=== PATIENT | female | born 1985 | race Hispanic/Latino ===

== ENCOUNTER 2023-11-23 19:46 | Emergency (ER) | payer MEDICARE, OTHER, SELFPAY ==
[2023-11-23 19:52] VITALS: BP 122/85
[2023-11-23 21:00] VITALS: BP 118/82
[2023-11-23] MEDS: SENOKOT 17.1999999999999993 MG PO (21:01)
--- NOTE | 2023-11-23 21:41 | ED.GENMED ---
History of Present Illness
General
Chief Complaint: Abdominal Pain
Source: patient
Time Seen by Provider: 11/23/23 20:36
Travel History
Have you had any contact with someone who has COVID-19?: No
Do you have any symptoms of coronavirus? Fever > 100 degrees, chills, cough, shortness of breath, sore throat, loss of taste or smell, muscle aches, or headache?: No
History of Present Illness
History of Present Illness:
38-year-old female with past medical history of chronic constipation presenting to the emergency department for evaluation of an exacerbation of her constipation noting that she has not had a bowel movement in about 2 weeks which is worse than her
usual. She was at [facility] yesterday where she had CT imaging performed which showed constipation but no other surgical abnormalities or obstruction. She has been using MiraLAX, magnesium citrate, home enemas and received a enema at the
ER yesterday with very minimal relief. She did contact her primary care provider as well as her GI provider today and GI ultimately wished to perform a bowel prep and continued MiraLAX however the patient was concerned with doing the bowel prep
with all of the medications she had already taken so did not do this. She denies any vomiting, fevers, chills or any other concerns presently.
Past History
Past History
ED Past Medical History: Arrthythmia (Tachycarida), Psychiatric (Anxiety ), Other (Migraines, strep throat, Lupus Transverse Mylitis) and Other (seasonal allergies with sinus congestion.); Negative GERD or IDDM
ED Past Surgical History: Gynecological (Tubal ligation)
Social History
Tobacco: Non-smoker
Alcohol: None
Drug: None
Personal:
Living: with family
Employment: Employed
Family History
Family History: Other (Noncontributory)
Review of Systems
Review of Systems
All Other Systems: ROS reviewed and negative except as documented in HPI and ROS
Phy Exam
Physical Exam
Physical Exam:
GENERAL: Alert , in no apparent distress but does appear uncomfortable
EYE: clear conjunctiva b/l
HEAD: NCAT
ENT: mmm.
ABDOMEN: Soft, without focal tenderness, no r/g, no cvat
Rectal exam: Chaperoned by ED EDUARDO Lennon: There is no stool within the rectal vault or fecal impaction
NEUROLOGICAL: Alert and oriented
SKIN: Warm and dry, skin intact.
MUSCULOSKELETAL: well perfused.
PSYCH: Normal and appropriate interaction.
Scores
Heart Failure Risk
Heart Failure Risk Score: Not Applicable
Heart Score for Chest Pain Patients
STEMI patient?: Not applicable
Withdrawal Assessment of Alcohol
Withdrawal Assessment Completed?: Not applicable
Course
Orders/Labs/Results
Orders:
Orders
11/23/23 20:45
Enema- Treatment ONCE
Type: Milk of Molasses
Sennosides [Senokot] 17.2 mg PO NOW STA
11/23/23 23:13
Lactulose [Duphalac/Chronulac] 20 grams PO NOW STA
11/23/23 23:30
Acetaminophen [Tylenol] 650 mg .ROUTE .STK-MED ONE
11/24/23 00:01
Acetaminophen [Tylenol] 650 mg PO NOW STA
Vital Signs
Initial and Last Documented VS:
Initial Vital Signs
Temp Pulse Resp BP Pulse Ox
98.1 F 111 16 122/85 99
11/23/23 19:52 11/23/23 19:52 11/23/23 19:52 11/23/23 19:52 11/23/23 19:52
Last Documented Vital Signs
Temp Pulse Resp BP Pulse Ox
98.1 F 89 18 124/88 99
11/23/23 19:52 11/24/23 00:15 11/24/23 00:15 11/24/23 00:15 11/24/23 00:15
MDM/Problems Addressed
Differential Diagnosis Includes:
Exacerbation of chronic constipation, I do not have concern for obstruction given normal CT done yesterday, I do not have concern for any acute surgical process
MDM/Problems Addressed:
38-year-old female with patient presenting to the emergency department with exacerbation of this constipation. She does not have any fecal impaction. She had imaging done yesterday at an outside institution which did not show any surgical
complications. At this time I do suspect her chronic constipation to be the most likely cause of her symptoms presently. Will trial Senokot and a milk of molasses enema. Reassessment following
*Pulse Oximetry
Patient hypoxic: no
*Critical Care Note
Total Time (30-74mins, 75-104mins- exclusive of procedures): Not Applicable
Data Reviewed
Review of Other/Old Records Reveals: Labs and Records
Source: patient and records
Comment
Comment:
11 PM: Patient with some relief following the milk of molasses enema. Still noting some discomfort. Will treat with additional lactulose. Tylenol also ordered for pain.
Patient Management
Escalation/DeEscalation of care consider admission/obs:
Patient resting comfortably and does not seem in any acute distress. She seems to be more frustrated than anything. She has had small bowel movements but nothing of substance. Will trial continued lactulose at home. She has already arranged
follow-up with her GI team this coming Sunday. Aware of return precautions and follow-up recommendations
ED Attending Note
-
Portions of this chart may have been created with voice recognition software.� Occasional wrong word or��sound alike� substitutions may have occurred due to the inherent limitations of voice recognition software.
Discharge Plan
Departure
Patient Disposition: Home (Routine Discharge)
Date of Disposition: 11/24/23
Time of Disposition: 00:36
Patient with high blood pressure during this ER visit?: No
Discharge Problem:
Constipation
Instructions: Constipation, Adult (DC)
Prescriptions:
New
lactulose 10 gram/15 mL (15 mL) solution
10 g PO BID PRN (Reason: Constipation) Qty: 120 0RF
No Action
amoxicillin-pot clavulanate 875 MG/125 MG tablet
1 tab PO Q12 Qty: 20 0RF
prednisone 20 MG tablet
40 mg PO DAILY Qty: 6 0RF
mometasone [Nasonex] 17 GM spray,non-aerosol
17 gm NS DAILY Qty: 1 1RF
Rx Instructions:
one spray each nostril daily
naproxen 500 MG tablet
500 mg PO BIDPRN PRN (Reason: pain) Qty: 30 0RF
Referrals:
Abdiaziz Sahu DO [Family Provider] -
Interventions
Interventions:
*Risk Screen - Suicide Last Done: 11/23/23 19:52
*General Assessment Last Done: 11/23/23 19:52
*Neglect/Abuse Screening Last Done: 11/23/23 19:52
*ED COVID-19 Vaccine History Last Done: 11/23/23 21:00
*Nursing Disposition Last Done: 11/24/23 00:59
[id number] Assessment Last Done: 11/23/23 21:00
Discharge Date and Time
Discharge Date/Time: 11/24/23 01:00
Print Language: UKRAINIAN
[2023-11-23] MEDS: DUPHALAC/CHRONULAC 20 GRAMS PO (23:23)
[2023-11-24] MEDS: TYLENOL 650 MG PO (00:02)
[2023-11-24 00:15] VITALS: BP 124/88
== END 2023-11-24 01:00 | disposition home or self-care (01) ==
LOC: EMR 19:46
PROVIDERS: EMERGENCY PHYSICIAN Emergency Medicine; FAMILY PHYSICIAN Internal Medicine
DX: K59.00 Constipation, unspecified (principal)
CPT/HCPCS: 99283

== ENCOUNTER 2024-05-24 18:16 | Emergency (ER) | payer MEDICARE, OTHER, SELFPAY ==
[2024-05-24 18:18] VITALS: BP 120/82
--- NOTE | 2024-05-24 19:08 | ED.GENMED ---
History of Present Illness
General
Chief Complaint: Anal/Rectal Problem
Source: patient
Exam Limitations: none
Time Seen by Provider: 05/24/24 19:07
History of Present Illness
History of Present Illness:
Patient with a history of significant constipation managed at home. Today while bearing down she all of a sudden rectal pain and rectal fullness. She thinks she may have prolapse. No bleeding. No abdominal pain.
Past History
Past History
ED Past Medical History: Arrthythmia (Tachycarida), Psychiatric (Anxiety ), Other (Migraines, strep throat, Lupus Transverse Mylitis) and Other (seasonal allergies with sinus congestion.); Negative GERD or IDDM
ED Past Surgical History: Gynecological (Tubal ligation)
Social History
Tobacco: Non-smoker
Alcohol: None
Drug: None
Personal:
Living: with family
Employment: Employed
Family History
Family History: Other (Noncontributory)
Review of Systems
Review of Systems
All Other Systems: Not applicable
Constitutional: Denies fever
ABD/GI: Denies abdominal pain or vomiting
Phy Exam
Physical Exam
Physical Exam:
GENERAL: Alert and oriented in no apparent distress
CARDIAC: Regular rate and rhythm
LUNGS: No respiratory distress
ABDOMEN: Soft, without focal tenderness or distention. Rectal exam with enlarged boggy hemorrhoids with some erythema. No bleeding. Process. No prolapse.
NEUROLOGICAL: Alert and oriented , grossly non-focal
SKIN: Warm and dry
PSYCH: Normal and appropriate interaction.
Course
Vital Signs
Initial and Last Documented VS:
Initial Vital Signs
Temp Pulse Resp BP Pulse Ox
98.1 F 81 16 120/82 99
05/24/24 18:18 05/24/24 18:18 05/24/24 18:18 05/24/24 18:18 05/24/24 18:18
Last Documented Vital Signs
Temp Pulse Resp BP Pulse Ox
98.1 F 81 16 120/82 99
05/24/24 18:18 05/24/24 18:18 05/24/24 18:18 05/24/24 18:18 05/24/24 18:18
MDM/Problems Addressed
Differential Diagnosis Includes:
All consistent with inflamed hemorrhoids. Nothing to support prolapsed rectum. Anusol HC. Continue constipation management follow-up
*Critical Care Note
Total Time (30-74mins, 75-104mins- exclusive of procedures): Not Applicable
ED Attending Note
-
Portions of this chart may have been created with voice recognition software.� Occasional wrong word or��sound alike� substitutions may have occurred due to the inherent limitations of voice recognition software.
Discharge Plan
Departure
Patient Disposition: Home (Routine Discharge)
Date of Disposition: 05/24/24
Time of Disposition: 19:29
Patient with high blood pressure during this ER visit?: Yes
Discharge Problem:
Inflamed external hemorrhoid, Chronic constipation
Instructions: Hemorrhoids (DC), BLOOD PRESSURE
Prescriptions:
New
hydrocortisone acetate [Anusol-HC] 25 mg suppository
25 mg [place] DAILY 14 Days Qty: 12 0RF
No Action
amoxicillin-pot clavulanate 875 MG/125 MG tablet
1 tab PO Q12 Qty: 20 0RF
prednisone 20 MG tablet
40 mg PO DAILY Qty: 6 0RF
mometasone [Nasonex] 17 GM spray,non-aerosol
17 gm NS DAILY Qty: 1 1RF
Rx Instructions:
one spray each nostril daily
naproxen 500 MG tablet
500 mg PO BIDPRN PRN (Reason: pain) Qty: 30 0RF
lactulose 10 gram/15 mL (15 mL) solution
10 g PO BID PRN (Reason: Constipation) Qty: 120 0RF
Referrals:
Cheo Stanley MD [Active] - Follow up in 5-7 days
Activity Restrictions/Additional Instructions:
I gave you a prescription for the rectal suppository. You may be able to buy the cream [id number].
I also gave you the name of the colorectal surgeon to call for follow-up
Interventions
Interventions:
*Risk Screen - Suicide Last Done: 05/24/24 18:18
*General Assessment Last Done: 05/24/24 18:18
*Neglect/Abuse Screening Last Done: 05/24/24 18:18
*ED COVID-19 Vaccine History Last Done: 05/24/24 18:18
Discharge Date and Time
Print Language: CROATIAN
[2024-05-24 19:41] VITALS: BP 117/80
== END 2024-05-24 19:50 | disposition home or self-care (01) ==
LOC: EMR 18:16
PROVIDERS: EMERGENCY PHYSICIAN Emergency Medicine; FAMILY PHYSICIAN Family Medicine
DX: K64.4 Residual hemorrhoidal skin tags (principal); K59.09 Other constipation; F41.9 Anxiety disorder, unspecified; M32.9 Systemic lupus erythematosus, unspecified; Z98.51 Tubal ligation status
CPT/HCPCS: 99282

== ENCOUNTER 2024-06-18 12:17 | Emergency (ER) | payer MEDICARE, OTHER, SELFPAY ==
[2024-06-18 12:26] VITALS: BP 126/83
[2024-06-18] MEDS: MOTRIN 400 MG PO (15:38)
--- NOTE | 2024-06-18 18:09 | ED.GENMED ---
History of Present Illness
General
Chief Complaint: Fall
Source: patient
Exam Limitations: none
Time Seen by Provider: 06/18/24 14:42
Nursing documentation reviewed up to this point in time: agreed with
History of Present Illness
History of Present Illness:
39-year-old female with past medical history of ITP, lupus, presents emergency department today with concerns of intermittent dizziness and left shoulder pain and left hip pain following a fall. She also notes neck pain. She reports that she was
walking out of her house today when she slipped on ice and fell back, hitting her head and injuring the left side of her body. Patient states that she is able to get up on her own and ambulate without difficulty. This was captured on the ring
camera and I was able to view the video. Patient was walking down a ramp when this occurred. She denies any other injuries. She denies any loss of consciousness. She follows with hematology for ITP and was told that she is to report to emergency
department anytime she has a head injury. She denies any upper extremity paresthesias, weakness, difficulty speaking, visual changes.
Past History
Past History
ED Past Medical History: Arrthythmia (Tachycarida), Psychiatric (Anxiety ), Other (Migraines, strep throat, Lupus Transverse Mylitis) and Other (seasonal allergies with sinus congestion.); Negative GERD or IDDM
ED Past Surgical History: Gynecological (Tubal ligation)
Social History
Tobacco: Non-smoker
Alcohol: None
Drug: None
Personal:
Living: with family
Employment: Employed
Family History
Family History: Other (Noncontributory)
Review of Systems
Review of Systems
All Other Systems: ROS reviewed and negative except as documented in HPI and ROS
Phy Exam
Physical Exam
Physical Exam:
General: Patient is well appearing and in no acute distress; non-toxic
Skin: Warm and dry, no rashes or lesions
Head: Normocephalic, atraumatic, no palpable scalp hematomas
Eyes: Sclera non-icteric. EOMs intact.
Cardiac: Regular rate and rhythm, no murmurs
Peripheral Vascular: No lower extremity swelling or edema
Pulm: Normal respiratory effort
Abdomen: No abdominal tenderness to palpation
Musculoskeletal: No midline spinal tenderness to palpation, no paraspinal tenderness. Mild tenderness to palpation of the left humeral head, no palpable bony deformities, pain with passive range of motion of the left shoulder.
Neuro: CN II-XII intact, no focal neurologic deficits. 5 out of 5 strength in bilateral upper and lower extremities.
Psychiatric: Appropriate mood and affect.
Course
Orders/Labs/Results
Orders:
Orders
06/18/24 12:[address] [CT Head W/o Iv Contrast] Urgent
Comment:
Reason For Exam: head trauma
06/18/24 15:04
Ibuprofen [Motrin] 400 mg PO NOW STA
CR Shoulder - Left Min 2 View* Urgent
Comment:
Reason For Exam: left humeral head pain
06/18/24 15:06
CR Cervical Spine 4 Or 5 Vw Urgent
Comment:
Reason For Exam: midline neck pain
06/18/24 15:51
CR Hip - LT w/wo Pel 2-3 Vw* Urgent
Comment:
Reason For Exam: left hip pain
Include a pelvis x-ray?: Yes
Vital Signs
Initial and Last Documented VS:
Initial Vital Signs
Temp Pulse Resp BP Pulse Ox
98 F 64 16 126/83 100
06/18/24 12:26 06/18/24 12:26 06/18/24 12:06/18/24 12:06/18/24 12:26
Last Documented Vital Signs
Temp Pulse Resp BP Pulse Ox
98 F 64 16 126/83 100
06/18/24 12:26 06/18/24 12:26 06/18/24 12:06/18/24 12:24 12:26
MDM/Problems Addressed
Differential Diagnosis Includes:
See below
MDM/Problems Addressed:
NUMBER AND COMPLEXITY OF PROBLEMS ADDRESSED AT THE ENCOUNTER
� Chronic conditions affecting care: Migraines, ITP, depression, anxiety
� Acute Exacerbation and/or Progression of Chronic Illness:
� Differential Diagnosis includes: Concussion, epidural hematoma, subarachnoid hemorrhage, musculoskeletal sprain/strain, shoulder fracture
AMOUNT AND/OR COMPLEXITY OF DATA TO BE REVIEWED AND ANALYZED
� I performed an independent evaluation of and my interpretation is:
Laboratory Studies: No indication for lab work at this time
Other:
� Review of other/old records: Reviewed previous ER physician documentation from 05/24/2024, patient seen for inflamed external hemorrhoid, no discharge summaries [facility] to review
� Clinical information was obtained by an independent historian: none
� Prescriptions/Medications Considered but not given: none
� Further testing considered but not performed: none
RISK OF COMPLICATIONS AND/OR MORBIDITY OR MORTALITY OF PATIENT MANAGEMENT
� Social determinants of health affecting care: none
� Discussion with other providers: ER attending
� Escalation of care including admission/observation vs risk of discharge considered:
39-year-old female presents emergency department today with concerns of dizziness following head trauma. Patient states that she has a history of ITP and her quality assurance associate told her to come into emergency department anytime she hits her head. Her CT
was negative for any acute bleeding. Her x-rays were negative for fracture. She can walk without difficulty. Patient stable for discharge.
*Critical Care Note
Total Time (30-74mins, 75-104mins- exclusive of procedures): Not Applicable
ED Attending Note
-
Portions of this chart may have been created with voice recognition software.� Occasional wrong word or��sound alike� substitutions may have occurred due to the inherent limitations of voice recognition software.
Discharge Plan
Departure
Patient Disposition: Home (Routine Discharge)
Date of Disposition: 06/18/24
Time of Disposition: 17:07
Patient with high blood pressure during this ER visit?: Yes
Condition: Good
Discharge Problem:
Acute head trauma, Concussion
Instructions: Concussion, Adult (DC), Head Injury in Adults (DC), BLOOD PRESSURE
Prescriptions:
No Action
amoxicillin-pot clavulanate 875 MG/125 MG tablet
1 tab PO Q12 Qty: 20 0RF
prednisone 20 MG tablet
40 mg PO DAILY Qty: 6 0RF
mometasone [Nasonex] 17 GM spray,non-aerosol
17 gm NS DAILY Qty: 1 1RF
Rx Instructions:
one spray each nostril daily
naproxen 500 MG tablet
500 mg PO BIDPRN PRN (Reason: pain) Qty: 30 0RF
lactulose 10 gram/15 mL (15 mL) solution
10 g PO BID PRN (Reason: Constipation) Qty: 120 0RF
hydrocortisone acetate [Anusol-HC] 25 mg suppository
25 mg [place] DAILY 14 Days Qty: 12 0RF
Referrals:
Sandra Gibbs CRNP [Family Provider] -
Activity Restrictions/Additional Instructions:
Your x-ray did not show any evidence of fracture. Your CT scan of your head did not show any evidence of bleeding.
And take ibuprofen as needed for pain. You can take 400 mg every 4-6 hours as needed. Please do not exceed 1200 mg a day.
Please follow-up with your quality assurance associate and primary care provider as needed.
PLEASE RETURN TO THE EMERGENCY DEPARTMENT SHOULD YOU DEVELOP CHEST PAIN, SHORTNESS OF BREATH, LIGHTHEADEDNESS, SYNCOPAL EPISODES, SEVERE HEADACHE, INTRACTABLE NAUSEA OR VOMITING, VISUAL LOSS, OR ANY OTHER SIGNS OR SYMPTOMS WORRISOME TO YOU.
Interventions
Interventions:
*Risk Screen - Suicide Last Done: 06/18/24 12:29
*General Assessment Last Done: 06/18/24 18:12
*Neglect/Abuse Screening Last Done: 06/18/24 12:29
ED- Fall Risk Assessment Last Done: 06/18/24 18:12
*ED COVID-19 Vaccine History Last Done: 06/18/24 12:29
*Nursing Disposition Last Done: 06/18/24 18:12
ED-Musculoskeletal Assessment Last Done: 06/18/24 18:12
ED- Neurological Assessment Last Done: 06/18/24 18:12
ED-Skin Assessment Last Done: 06/18/24 18:12
Discharge Date and Time
Print Language: [id number]
== END 2024-06-18 18:13 | disposition home or self-care (01) ==
LOC: EMR 12:17
PROVIDERS: EMERGENCY PHYSICIAN Emergency Medicine; FAMILY PHYSICIAN Nurse Practitioner Primary Care
DX: S06.0XAA Concussion with loss of consciousness status unknown, initial encounter (principal); W00.0XXA Fall on same level due to ice and snow, initial encounter; Y92.009 Unspecified place in unspecified non-institutional (private) residence as the place of occurrence of the external cause; Y93.01 Activity, walking, marching and hiking; D69.3 Immune thrombocytopenic purpura; M32.9 Systemic lupus erythematosus, unspecified; M25.552 Pain in left hip; F41.8 Other specified anxiety disorders; Z98.51 Tubal ligation status
CPT/HCPCS: 99284; 70450; 72050; 73030; 73502

== ENCOUNTER → 2024-10-08 12:15 | Outpatient (REF) | payer MEDICARE, SELFPAY | LOC: RCS 12:15 | PROVIDERS: ATTENDING PHYSICIAN Nurse Practitioner Family; FAMILY PHYSICIAN Internal Medicine | DX: R42 Dizziness and giddiness (principal) | CPT/HCPCS: 93005 ==

== ENCOUNTER 2024-11-16 20:15 | Emergency (ER) | payer MEDICARE, SELFPAY ==
[2024-11-16 20:18] VITALS: BP 123/78
[2024-11-16 20:53] LABS: % Basophils 0.7 % (0-2); % Eosinophils 1.4 % (0-6); % Immature Granulocytes 0.3 % (0-0.5); % Lymphocytes 14.6 % (20.5-51.1); % Monocytes 7.5 % (1.7-9.3); % Neutrophils 75.5 % (42.2-75.2); Absolute Basophils 0.1 10^3/uL (0-0.2); Absolute Eosinophils 0.1 10^3/uL (0-0.7); Absolute Lymphocytes 1.4 10^3/uL (1.2-3.4); Absolute Monocytes 0.7 10^3/uL (0.1-0.6); Absolute Neutrophils 7.2 10^3/uL (1.4-6.5); Hematocrit 43.7 % (37.0-47.0); Hemoglobin 15.2 g/dL (12.0-16.0); Mean Corp Hgb Conc. 34.8 g/dL (33.0-37.0); Mean Platelet Volume 11.7 fL (7.4-10.4); Nucleated Red Blood Cells % 0 %; Platelet Count 186 10^3/uL (130-400); Red Blood Cell Count 4.91 10^6/uL (4.20-5.40); Red Cell Dist. Width 11.6 % (11.5-14.5); White Blood Cell Count 9.6 10^3/uL (4.8-10.8)
[2024-11-16 21:08] LABS: ALT (SGPT) 46 U/L (0-35); AST (SGOT) 38 U/L (14-36); Alkaline Phosphatase 93 U/L (38-126); Blood Urea Nitrogen 14 mg/dl (7-17); Calcium 9.4 mg/dl (8.4-10.2); Carbon Dioxide 20 mmol/L (22-30); Chloride 109 mmol/L (98-107); Glucose 84 mg/dl (70-99); Potassium 4.3 mmol/L (3.5-5.1); Sodium 139 mmol/L (135-145); Total Bilirubin 0.7 mg/dl (0.2-1.3); Total Protein 8.3 g/dl (6.3-8.2); eGFR > 60.00
[2024-11-16 23:47] VITALS: BP 105/58; BMI 31.2
[2024-11-16 23:48] VITALS: BP 105/58
[2024-11-17] MEDS: NSS 1000 IV (00:55)
--- NOTE | 2024-11-17 02:19 | ED.GENMED ---
History of Present Illness
General
Chief Complaint: Rectal Bleeding
Source: patient
Exam Limitations: none
Time Seen by Provider: 11/17/24 02:18
Nursing documentation reviewed up to this point in time: agreed with
History of Present Illness
History of Present Illness:
This is a 39-year-old female with a past medical history of lupus, chronic constipation, gastroparesis falls with G.I. presents an emergency apartment with concerns of abdominal pain, rectal pain, and bleeding from her rectum for the past few days.
Patient reports that when this first started, she noticed pain in her rectum And there was some blood clots in the toilet. She never had this before. Patient sees that she has a history of hemorrhoids, but never noticed bleeding with them before.
She had a tubal ligation, but any history of other abdominal surgeries. Reports that her frontal abdominal pain started on the left side and progress to encompass the general lower abdomen. She states that she feels comfortable at baseline but
states that she has episodes of sharper pain. Patient states that she feels like her constipation may have gotten worse. She is on a bowel regiment at home. She denies any fevers or chills. She needs any chest pain or shortness of breath. She has a
follow up appointment with her G.I. doctor in November.
Past History
Past History
ED Past Medical History: Arrthythmia (Tachycarida), Psychiatric (Anxiety ), Other (Migraines, strep throat, Lupus Transverse Mylitis) and Other (seasonal allergies with sinus congestion.); Negative GERD or IDDM
ED Past Surgical History: Gynecological (Tubal ligation)
Social History
Tobacco: Non-smoker
Alcohol: None
Drug: None
Personal:
Living: with family
Employment: Employed
Family History
Family History: Other (Noncontributory)
Review of Systems
Review of Systems
All Other Systems: ROS reviewed and negative except as documented in HPI and ROS
Phy Exam
Physical Exam
Physical Exam:
General: Patient is well appearing and in no acute distress; non-toxic
Skin: Warm and dry, no rashes or lesions
Head: Normocephalic, atraumatic
Eyes: Sclera non-icteric. EOMs intact.
Cardiac: Regular rate and rhythm, no murmurs
Peripheral Vascular: No lower extremity swelling or edema
Pulm: Normal respiratory effort
Abdomen: Abdomen is soft, there is some tenderness to palpation noted in the left side of the abdomen with no rebound tenderness, no guarding. Normoactive bowel sounds
Genitourinary: Tender bleeding thrombosed external hemorrhoids. No stool within rectal vault.
Neuro: CN II-XII intact, no focal neurologic deficits.
Psychiatric: Appropriate mood and affect.
Course
Orders/Labs/Results
Orders:
Orders
11/16/24 20:43
Type And Crossmatch [Type+Screen] Urgent
Complete Blood Count/With Diff Urgent
Comprehensive Metabolic Panel Urgent
11/17/24 00:04
ABO [Blood Group&Type] Urgent
11/17/24 00:54
0.9% Sodium Chloride 1000 ml [Nss] 1,000 ml IV BOLUS
11/17/24 02:27
Lidocaine 2% [Lidocaine Uro-Jet 2%] 1 syringe .ROUTE .[facility]
11/17/24 02:36
HCG, Urine Qualitative Screen Urgent
Date Specimen was Collected: 11/17/24
Time Specimen was Collected: 02:24
Comment: ADDED
Urinalysis Reflex To Culture Urgent
Date Specimen was Collected: 11/17/24
Time Specimen was Collected: 02:24
Urine Microscopic Reflex Cult Urgent
Urine Culture Urgent
ALO Source: U
Specimen Description:
Date Specimen was Collected: 11/17/24
Time Specimen was Collected: 02:24
11/17/24 02:39
Add On- LAB Urgent
Tests Added?: urine HCG
Ketorolac [Toradol] 30 mg IV NOW STA
11/17/24 02:42
CT Abd/pelvis W Iv Cont Urgent
Comment:
Reason For Exam: RLQ abdominal pain, rectal bleeding
11/17/24 02:44
Dibucaine [Nupercainal 1% Ointment] See Dose Instructions TOPICAL NOW STA
Abnormal Lab Results
11/16/24 11/17/24
20:43 02:36
MPV 11.7 H fL
(7.4-10.4)
Absolute Neuts (auto) 7.2 H 10^3/uL
(1.4-6.5)
Absolute Monos (auto) 0.7 H 10^3/uL
(0.1-0.6)
Neutrophils % 75.5 H %
(42.2-75.2)
Lymphocytes % 14.6 L %
(20.5-51.1)
Chloride 109 H mmol/L
(98-107)
Carbon Dioxide 20 L mmol/L
(22-30)
AST 38 H U/L
(14-36)
ALT 46 H U/L
(0-35)
Total Protein 8.3 H g/dl
(6.3-8.2)
Urine Ketones 1+ A
(Negative)
Ur Occult Blood Reflex 1+ A
(Negative)
Urine RBC 7-10 A /HPF
(0-2)
Urine Bacteria (Reflex) Moderate A
(Negative)
11/16/24 20:43
11/16/24 20:43
Vital Signs
Initial and Last Documented VS:
Initial Vital Signs
Temp Pulse Resp BP Pulse Ox
98.5 F 78 18 123/78 98
11/16/24 20:18 11/16/24 20:18 11/16/24 20:18 11/16/24 20:18 11/16/24 20:18
Last Documented Vital Signs
Temp Pulse Resp BP Pulse Ox
98.5 F 70 18 101/76 98
11/17/24 05:26 11/16/24 23:48 11/16/24 20:18 11/17/24 06:00 11/17/24 06:45
MDM/Problems Addressed
Differential Diagnosis Includes:
bleeding hemorrhoid, diverticulitis, colitis, gastroenteritis, cystitis
MDM/Problems Addressed:
This is a 39-year-old female with a past medical history of lupus, chronic constipation, gastroparesis falls with G.I. presents an emergency apartment with concerns of abdominal pain, rectal pain, and bleeding from her rectum for the past few days.
Patient reports that when this first started, she noticed pain in her rectum And there was some blood clots in the toilet. She has never had bleeding with hemorrhoids before. On PE, patient is well appearing, does have soft abdomen with some
tenderness to palpation on the left side. Her rectum is exquisitely tender with bleeding thrombosed hemorrhoids noted. Patient improved with dibucaine. Will also send topical steroid to pharmacy. CT scan negative for acute pathology. Suspect pain
related to chronic constipation. It did show bladder wall thickening which may represent cystitis. In light of patient's urinalysis, abdominal pain, and CT finding will over with abx. Patient states that she will call her GI provider tomorrow. Pt
stable for discharge.
Chronic conditions affecting care:
lupus, gastroparesis
*Pulse Oximetry
Patient hypoxic: no
*Critical Care Note
Total Time (30-74mins, 75-104mins- exclusive of procedures): Not Applicable
ED Attending Note
-
Portions of this chart may have been created with voice recognition software.� Occasional wrong word or��sound alike� substitutions may have occurred due to the inherent limitations of voice recognition software.
Discharge Plan
Departure
Patient Disposition: Home (Routine Discharge)
Date of Disposition: 11/17/24
Time of Disposition: 05:54
Patient with high blood pressure during this ER visit?: No
Condition: Good
Discharge Problem:
Bleeding hemorrhoids, Cystitis, Abdominal pain
Instructions: Urinary tract infections in adults, How to take a sitz bath, Hemorrhoids - ED discharge instructions
Prescriptions:
New
hydrocortisone 2.5 % cream
1 applic topical BID 3 Days Qty: 28 0RF
cephalexin 500 mg capsule
500 mg PO BID 7 Days Qty: 14 0RF
No Action
mometasone [Nasonex] 17 GM spray,non-aerosol
17 gm NS DAILY Qty: 1 1RF
Rx Instructions:
one spray each nostril daily
celecoxib [Celebrex] 200 mg Capsule
200 mg PO BID
polyethylene glycol 3350 [Miralax] 17 gram Powder In Packet
34 g PO DAILY
baclofen 20 mg Tablet
20 mg PO TID
hydroxychloroquine [Plaquenil] 200 mg Tablet
200 mg PO BID
escitalopram oxalate [Lexapro] 20 mg Tablet
20 mg PO DAILY
aripiprazole [Abilify] 10 mg Tablet
10 mg PO DAILY
Linzess 290 mcg Capsule
290 mcg PO DAILY
gabapentin 900 mg Tablet Extended Release 24 Hr
600 mg PO TID
Medical Marijuana
Referrals:
Abdiaziz Sahu DO [Family Provider] -
Activity Restrictions/Additional Instructions:
Keflex has been sent to your pharmacy. Please take 1 tablet twice daily for 7 days.
You can continue to use the Dibucaine cream. Hydrocortisone cream has been also sent to your pharmacy. You can apply this to affected area up to twice daily. I recommend using this for few days but do not use this more than a week as this can
increase risk of thinning of the rectal mucosa. Please continue to monitor your symptoms.
Please call your GI doctor in the morning to bump up your follow-up appointment. Please continue your at home bowel regimen.
PLEASE RETURN EMERGENCY DEPARTMENT SHOULD YOU DEVELOP ACUTE WORSENING OR SYMPTOMS, CHEST PAIN, SHORTNESS OF BREATH, FEVERS OR CHILLS, LIGHTHEADEDNESS, DIZZINESS, INCREASING PAIN, OR ANY OTHER SIGNS OR SYMPTOMS WORRISOME TO YOU.
Interventions
Interventions:
*Risk Screen - Suicide Last Done: 11/16/24 20:18
*General Assessment Last Done: 11/16/24 20:18
*Neglect/Abuse Screening Last Done: 11/16/24 20:18
*ED- Fall Risk Assessment Last Done: 11/16/24 20:18
*ED COVID-19 Vaccine History Last Done: 11/16/24 20:18
*Nursing Disposition Last Done: 11/17/24 06:50
IN-Jxwmpg-Ysoygrhnuu Assessment Last Done: 11/17/24 00:05
ED- Cardiac Assessment Last Done: 11/17/24 00:05
ED- Pulmonary Assessment Last Done: 11/17/24 00:05
Discharge Date and Time
Discharge Date/Time: 11/17/24 06:50
Print Language: GREEK
[2024-11-17 02:38] VITALS: BP 108/67
[2024-11-17] MEDS: TORADOL 30 MG IV (02:46)
[2024-11-17 02:56] LABS: Urine Albumin Negative (Neg - Trace); Urine Bilirubin Negative (Negative); Urine Character Clear (Clear); Urine Color Yellow; Urine Glucose Negative (Negative); Urine Ketone 1+ (Negative); Urine Leukocyte Negative (Negative); Urine Nitrite Negative (Negative); Urine Occult Blood 1+ (Negative); Urine Urobilinogen Negative (Neg - 1+)
[2024-11-17 03:02] LABS: HCG, Urine Qualitative Screen Negative
[2024-11-17 03:05] LABS: Urine Bacteria Moderate (Negative); Urine Squamous Cell >30 /LPF (Few); Urine White Cell 0-2 /HPF (0-5)
[2024-11-17] MEDS: NUPERCAINAL 1% OINTMENT 1 APPLIC TOPICAL (03:42)
[2024-11-17 05:24] VITALS: BP 111/77
[2024-11-17 06:00] VITALS: BP 101/76
== END 2024-11-17 06:50 | disposition home or self-care (01) ==
LOC: EMR 20:15
PROVIDERS: Student in an Organized Health Care Education/Training Program; EMERGENCY PHYSICIAN Student in an Organized Health Care Education/Training Program; FAMILY PHYSICIAN Internal Medicine
DX: K62.5 Hemorrhage of anus and rectum (principal); M32.9 Systemic lupus erythematosus, unspecified; K59.09 Other constipation; K31.84 Gastroparesis; F41.9 Anxiety disorder, unspecified; N30.90 Cystitis, unspecified without hematuria; Z87.19 Personal history of other diseases of the digestive system; Z98.51 Tubal ligation status
CPT/HCPCS: 99284; 96374; 96361; 74177; 80053; 81003; 81015; 81025; 85025; 86850; 86900; 86901; 87086; Q9967